=== PATIENT | female | born 1950 | race Caucasian/White ===

== ENCOUNTER 2023-11-30 10:40 | Inpatient (IN) | payer MEDICARE, OTHER ==
[~2023-11-30] VITALS: Ht 162.6 cm; Wt 73.0 kg
[2023-11-30 12:06] LABS: BASOPHILS % (AUTO) 0.9 % (0.0-2.0); EOSINOPHILS # (AUTO) 0.1 K/uL (0.0-0.7); EOSINOPHILS % (AUTO) 1.7 % (0.0-6.0); HEMATOCRIT 38 % (33-45); HEMOGLOBIN 12.7 g/dL (11.5-14.8); LYMPHOCYTES # (AUTO) 0.8 K/uL (0.8-4.8); LYMPHOCYTES % (AUTO) 24.1 % (20.0-44.0); MEAN CORPUSCULAR HEMOGLOBIN 31 PG (26.0-33.0); MEAN CORPUSCULAR HGB CONC 34 g/dl (31.0-36.0); MEAN CORPUSCULAR VOLUME 93 fL (82-100); MONOCYTES # (AUTO) 0.2 K/uL (0.1-1.30); MONOCYTES % (AUTO) 5.5 % (2.0-12.0); NEUTROPHILS # (AUTO) 2.4 K/uL (1.8-8.9); NEUTROPHILS % (AUTO) 67.8 % (43.0-81.0); PLATELET COUNT (AUTO) 171 K/uL (150-450); RED BLOOD CELL COUNT(AUTO) 4.06 MIL/uL (4.0-5.2); RED CELL DISTRIBUTION WIDTH 13.2 % (11.5-15.0); WHITE BLOOD COUNT (AUTO) 3.5 K/uL (4.3-11.0)
[2023-11-30 12:18] LABS: CALCIUM, SERUM 9.5 mg/dL (8.5-10.1); CARBON DIOXIDE 29 mmol/L (21-32); CHLORIDE 106 mmol/L (98-107); CREATININE 0.8 mg/dL (0.6-1.3); GLUCOSE 108 mg/dL (74-106); POTASSIUM 3.5 mmol/L (3.5-5.1); SODIUM SERUM 139 mmol/L (136-145); UREA NITROGEN, BLOOD 7 mg/dL (7-18)
[2023-11-30 12:22] LABS: ALANINE AMINOTRANSFERASE 30 U/L (12-78); ALBUMIN 3.5 g/dL (3.4-5.0); ALCOHOL, BLOOD < 3 mg/dL (0-10); ALKALINE PHOSPHATASE 66 U/L (46-116); ASPARTATE AMINOTRANSFERASE 24 U/L (15-37); BILIRUBIN,DIRECT 0.2 mg/dL (0.0-0.2); BILIRUBIN,TOTAL 0.6 mg/dL (0.2-1.0); TOTAL PROTEIN, SERUM 6.2 g/dL (6.4-8.2)
[2023-11-30 12:23] LABS: ACETAMINOPHEN <10 ug/ml (10-30); SALICYLATE < 0.2 mg/dL (2.8-20.0)
[2023-11-30] MEDS ORDERED: QUET25TA PO (12:37)
[2023-11-30] MEDS ORDERED: LEVO50TA8 PO (12:37)
[2023-11-30] MEDS ORDERED: ESCI10TA PO (12:37)
[2023-11-30] MEDS ORDERED: TRAZ-182 PO (12:37)
[2023-11-30] MEDS ORDERED: ATOR20TA PO (12:37)
[2023-11-30] MEDS ORDERED: ASPI-1420 PO (12:37)
[2023-11-30] MEDS ORDERED: DONE10TA11 PO (12:37)
[2023-11-30] MEDS ORDERED: CLON0.5T4 PO ×2 (12:37)
[2023-11-30 14:56] LABS: APPEARANCE,URINE Clear (CLEAR); BILIRUBIN,URINE SMALL (NEGATIVE); BLOOD, URINE Negative Ery/uL (NEGATIVE); COLOR,URINE YELLOW (YELLOW); KETONES,URINE Trace mg/dL (NEGATIVE); LEUKOCYTE ESTERASE ,URINE Negative (NEGATIVE); NITRITE, URINE Negative (NEGATIVE); PH,URINE 5.5 (5.0-8.0); PROTEIN,URINE 30 mg/dl (NEGATIVE); UGLUCOSE Negative (NEGATIVE)
[2023-11-30 15:04] LABS: AMPHETAMINE, URINE NEGATIVE (NEGATIVE); BARBITURATE, URINE NEGATIVE (NEGATIVE); CANNABINOID, URINE NEGATIVE (NEGATIVE); COCCAINE, URINE NEGATIVE (NEGATIVE); OPIATE, URINE NEGATIVE (NEGATIVE); PHENCYCLIDINE SCREEN,URINE NEGATIVE (NEGATIVE)
[2023-11-30 15:10] LABS: BENZODIAZEPINE, URINE POSITIVE (NEGATIVE)
[2023-11-30 15:33] LABS: ADD URINE CULTURE NO; BACTERIA,URINE None seen /HPF (None Seen); CALCIUM OXALATE CRYSTALS,UR Many /HPF (None Seen); MUCUS,URINE Moderate /LPF (None Seen); RBC,URINE NONE SEEN /HPF (0-2); SQUAMOUS EPITHELIAL CELL,UR None Seen /HPF (None Seen); WBC,URINE NONE SEEN /HPF (0-3)
[2023-11-30] MEDS: ASPIRIN EC 81 MG TABLET.DR PO SCH (16:53)
[2023-11-30] MEDS: LEVOTHYROXINE SODIUM 50 MCG TABLET PO SCH (16:53)
[2023-11-30 20:14] VITALS: BP 109/76; TEMP 98.4; O2SAT 96
[2023-11-30] MEDS: ATORVASTATIN 10 MG TABLET PO SCH (21:07)
[2023-11-30] MEDS: DONEPEZIL 5 MG TABLET PO SCH (21:07)
[2023-11-30] MEDS: TEMAZEPAM 7.5 MG CAPSULE PO SCH (21:08)
[2023-12-01] MEDS: LORAZEPAM 0.5 MG TABLET PO PRN (01:17)
[2023-12-01 07:13] LABS: CREATININE 0.8 mg/dL (0.6-1.3); POTASSIUM 3.6 mmol/L (3.5-5.1)
[2023-12-01 08:00] VITALS: BP 114/66; TEMP 98.7; O2SAT 98
[2023-12-01] MEDS: QUETIAPINE FUMARATE 25 MG TABLET PO SCH ×2 (13:29→21:16)
[2023-12-01 16:00] VITALS: BP 115/72; TEMP 98.3; O2SAT 97
[2023-12-02 08:00] VITALS: BP 111/69; TEMP 98.4; O2SAT 98
[2023-12-02 16:00] VITALS: BP 127/90; TEMP 98.6; O2SAT 99
[2023-12-02] MEDS: DIVALPROEX SODIUM 125 MG CAP.SPRINK PO SCH (17:10)
[2023-12-02] MEDS: QUETIAPINE FUMARATE 25 MG TABLET PO SCH ×2 (17:26→21:48)
[2023-12-02 20:00] VITALS: BP 134/72; TEMP 98.3; O2SAT 99
[2023-12-03 16:00] VITALS: BP 127/87; TEMP 97.8; O2SAT 97
[2023-12-03] MEDS: DIVALPROEX SODIUM 250 MG TABLET.DR PO SCH (16:16)
[2023-12-03 20:00] VITALS: BP 144/80; TEMP 97.8; O2SAT 97
[2023-12-04 08:43] VITALS: BP 131/85; TEMP 98.7; O2SAT 94
[2023-12-04 16:24] VITALS: BP 116/88; TEMP 97.5; O2SAT 94
[2023-12-04 20:00] VITALS: BP_SYST 109; BP_SYST 118; BP_DIAS 76; BP_DIAS 94; TEMP 98; TEMP 98.1; O2SAT 97; O2SAT 98
[2023-12-05 06:55] LABS: BASOPHILS % (AUTO) 0.8 % (0.0-2.0); EOSINOPHILS # (AUTO) 0.1 K/uL (0.0-0.7); EOSINOPHILS % (AUTO) 3.8 % (0.0-6.0); HEMATOCRIT 40 % (33-45); HEMOGLOBIN 13.7 g/dL (11.5-14.8); LYMPHOCYTES # (AUTO) 0.7 K/uL (0.8-4.8); LYMPHOCYTES % (AUTO) 24.7 % (20.0-44.0); MEAN CORPUSCULAR HEMOGLOBIN 32 PG (26.0-33.0); MEAN CORPUSCULAR HGB CONC 34 g/dl (31.0-36.0); MEAN CORPUSCULAR VOLUME 94 fL (82-100); MONOCYTES # (AUTO) 0.4 K/uL (0.1-1.30); MONOCYTES % (AUTO) 13.5 % (2.0-12.0); NEUTROPHILS # (AUTO) 1.6 K/uL (1.8-8.9); NEUTROPHILS % (AUTO) 57.2 % (43.0-81.0); PLATELET COUNT (AUTO) 177 K/uL (150-450); RED BLOOD CELL COUNT(AUTO) 4.24 MIL/uL (4.0-5.2); RED CELL DISTRIBUTION WIDTH 13.4 % (11.5-15.0); WHITE BLOOD COUNT (AUTO) 2.8 K/uL (4.3-11.0)
[2023-12-05 07:28] LABS: ALBUMIN 3.3 g/dL (3.4-5.0); BILIRUBIN,TOTAL 0.8 mg/dL (0.2-1.0); CALCIUM, SERUM 9.7 mg/dL (8.5-10.1); CREATININE 0.8 mg/dL (0.6-1.3); POTASSIUM 3.2 mmol/L (3.5-5.1); TOTAL PROTEIN, SERUM 6.6 g/dL (6.4-8.2)
[2023-12-05] MEDS: POTASSIUM CHLORIDE 20 MEQ TAB.PRT.SR PO SCH (10:55)
[2023-12-05 16:00] VITALS: BP 112/71; TEMP 98.2; O2SAT 96
[2023-12-05 21:19] VITALS: TEMP 98.2; O2SAT 96
[2023-12-06] MEDS: OLANZAPINE 10 MG VIAL IM ONE ×2 (06:51→06:52)
[2023-12-06 08:00] VITALS: BP 122/71; TEMP 97.9; O2SAT 98
[2023-12-06] MEDS ORDERED: Z GUARD REMEDY 4 OZ OINT TP PRN (08:30)
[2023-12-06] MEDS: CLOTRIMAZOLE 1% 15 GM TUBE TP SCH (09:16)
[2023-12-06] MEDS: Z GUARD REMEDY 4 OZ OINT TP SCH (09:16)
[2023-12-06] MEDS: DIVALPROEX SODIUM 125 MG TABLET.DR PO SCH (12:52)
[2023-12-06 15:26] LABS: CALCIUM, SERUM 9.3 mg/dL (8.5-10.1); CREATININE 0.8 mg/dL (0.6-1.3); POTASSIUM 3.6 mmol/L (3.5-5.1)
[2023-12-06 16:00] VITALS: BP 101/79; TEMP 98.7; O2SAT 98
[2023-12-06 20:00] VITALS: BP 128/81; TEMP 98.7; O2SAT 95
[2023-12-06 20:23] VITALS: BP 128/81; TEMP 98.7; O2SAT 95
[2023-12-06] MEDS: QUETIAPINE FUMARATE 25 MG TABLET PO SCH (21:53)
[2023-12-07 08:00] VITALS: BP 121/67; TEMP 97.6; O2SAT 97
[2023-12-07] MEDS: ENSURE ENLIVE 237 ML LIQUID (VANILLA) PO SCH (09:35)
[2023-12-07 16:00] VITALS: BP 108/65; TEMP 98; O2SAT 93
[2023-12-07 20:53] VITALS: BP 107/80; TEMP 98.1; O2SAT 98
[2023-12-08 08:00] VITALS: BP 115/60; TEMP 97.8; O2SAT 99
[2023-12-08] MEDS: QUETIAPINE FUMARATE 25 MG TABLET PO SCH (12:14)
[2023-12-08 16:00] VITALS: BP 101/67; TEMP 98.1; O2SAT 98
[2023-12-08 20:41] VITALS: BP 129/60; TEMP 98.2; O2SAT 95
[2023-12-09 08:00] VITALS: BP 98/75; TEMP 98.6; O2SAT 94
[2023-12-09 16:00] VITALS: BP 110/76; TEMP 98; O2SAT 98
[2023-12-09] MEDS: risperiDONE 1 MG TABLET PO SCH (16:53)
[2023-12-09 20:00] VITALS: BP 123/76; TEMP 98.4; O2SAT 97
[2023-12-09] MEDS: risperiDONE 0.25 MG TABLET PO SCH (22:39)
[2023-12-10 07:09] LABS: BASOPHILS % (AUTO) 0.7 % (0.0-2.0); EOSINOPHILS # (AUTO) 0.1 K/uL (0.0-0.7); HEMATOCRIT 40 % (33-45); HEMOGLOBIN 13.4 g/dL (11.5-14.8); LYMPHOCYTES # (AUTO) 0.9 K/uL (0.8-4.8); LYMPHOCYTES % (AUTO) 31.8 % (20.0-44.0); MEAN CORPUSCULAR HEMOGLOBIN 32 PG (26.0-33.0); MEAN CORPUSCULAR HGB CONC 34 g/dl (31.0-36.0); MEAN CORPUSCULAR VOLUME 95 fL (82-100); MONOCYTES # (AUTO) 0.3 K/uL (0.1-1.30); MONOCYTES % (AUTO) 10.1 % (2.0-12.0); NEUTROPHILS # (AUTO) 1.5 K/uL (1.8-8.9); NEUTROPHILS % (AUTO) 52.4 % (43.0-81.0); PLATELET COUNT (AUTO) 133 K/uL (150-450); RED BLOOD CELL COUNT(AUTO) 4.17 MIL/uL (4.0-5.2); RED CELL DISTRIBUTION WIDTH 13.4 % (11.5-15.0); WHITE BLOOD COUNT (AUTO) 2.9 K/uL (4.3-11.0)
[2023-12-10 07:11] LABS: ALBUMIN 2.5 g/dL (3.4-5.0); BILIRUBIN,TOTAL 0.7 mg/dL (0.2-1.0); CREATININE 0.6 mg/dL (0.6-1.3); POTASSIUM 3.7 mmol/L (3.5-5.1); TOTAL PROTEIN, SERUM 5.8 g/dL (6.4-8.2)
[2023-12-10 08:00] VITALS: BP 119/63; TEMP 98.6; O2SAT 98
[2023-12-10 16:00] VITALS: BP 148/90; TEMP 98.6; O2SAT 96
[2023-12-10 20:00] VITALS: BP 120/58; TEMP 98; O2SAT 96
[2023-12-11 08:00] VITALS: BP 122/54; TEMP 97.9; O2SAT 95
[2023-12-11 16:00] VITALS: BP 104/57; TEMP 98; O2SAT 94
[2023-12-11] MEDS: DIVALPROEX SODIUM 250 MG TABLET.DR PO SCH ×2 (17:05→21:33)
[2023-12-11 20:00] VITALS: BP 129/63; TEMP 98.2; O2SAT 98
[2023-12-12 08:00] VITALS: BP 121/67; TEMP 97.5; O2SAT 97
[2023-12-12 16:00] VITALS: BP 104/85; TEMP 97.6; O2SAT 96
[2023-12-12 20:21] VITALS: BP 121/94; TEMP 98.1; O2SAT 96
[2023-12-13 08:00] VITALS: BP 126/74; TEMP 98.1; O2SAT 98
[2023-12-13 08:18] LABS: BASOPHILS % (AUTO) 0.8 % (0.0-2.0); EOSINOPHILS # (AUTO) 0.1 K/uL (0.0-0.7); EOSINOPHILS % (AUTO) 2.9 % (0.0-6.0); HEMATOCRIT 38 % (33-45); HEMOGLOBIN 12.7 g/dL (11.5-14.8); LYMPHOCYTES # (AUTO) 0.7 K/uL (0.8-4.8); LYMPHOCYTES % (AUTO) 29.2 % (20.0-44.0); MEAN CORPUSCULAR HEMOGLOBIN 32 PG (26.0-33.0); MEAN CORPUSCULAR HGB CONC 34 g/dl (31.0-36.0); MEAN CORPUSCULAR VOLUME 94 fL (82-100); MONOCYTES # (AUTO) 0.3 K/uL (0.1-1.30); MONOCYTES % (AUTO) 10.5 % (2.0-12.0); NEUTROPHILS # (AUTO) 1.4 K/uL (1.8-8.9); NEUTROPHILS % (AUTO) 56.6 % (43.0-81.0); PLATELET COUNT (AUTO) 123 K/uL (150-450); RED BLOOD CELL COUNT(AUTO) 3.98 MIL/uL (4.0-5.2); RED CELL DISTRIBUTION WIDTH 13.6 % (11.5-15.0); WHITE BLOOD COUNT (AUTO) 2.4 K/uL (4.3-11.0)
[2023-12-13 16:00] VITALS: BP 134/69; TEMP 97.9; O2SAT 98
[2023-12-13 20:58] VITALS: BP 134/96; TEMP 98.1; O2SAT 97
[2023-12-14 08:00] VITALS: BP 122/69; TEMP 97.9; O2SAT 96
[2023-12-14] MEDS: OXCARBAZEPINE 150 MG TABLET PO SCH (08:26)
[2023-12-14 16:00] VITALS: BP 135/92; TEMP 98; O2SAT 98
[2023-12-14 20:30] VITALS: BP 124/87; TEMP 98.2; O2SAT 98
[2023-12-15 08:00] VITALS: BP 118/67; TEMP 97.9; O2SAT 97
[2023-12-15] MEDS: OXCARBAZEPINE 150 MG TABLET PO SCH ×3 (12:00→16:07)
[2023-12-15 16:00] VITALS: BP 120/64; TEMP 97.9; O2SAT 95
[2023-12-15 20:00] VITALS: BP 129/82; TEMP 98.2; O2SAT 99
[2023-12-16 08:00] VITALS: BP 119/76; TEMP 97.6; O2SAT 94
[2023-12-16] MEDS: OXCARBAZEPINE 150 MG TABLET PO SCH ×2 (08:28→13:38)
[2023-12-16 16:00] VITALS: BP 133/90; TEMP 97.5; O2SAT 94
[2023-12-16 20:00] VITALS: BP 128/71; TEMP 98.3; O2SAT 99
[2023-12-17 08:00] VITALS: BP_SYST 105; BP_SYST 123; BP_DIAS 52; BP_DIAS 75; TEMP 97.6; TEMP 97.9; O2SAT 96; O2SAT 98
== END 2023-12-17 12:50 | DRG 885 ==
LOC: ER 10:40 → GPS 16:09
PROVIDERS: ADMIT Psychiatry & Neurology Psychosomatic Medicine; ATTEND Internal Medicine
DX: F29 Unspecified psychosis not due to a substance or known physiological condition (principal); E44.1 Mild protein-calorie malnutrition; F02.82 Dementia in other diseases classified elsewhere, unspecified severity, with psychotic disturbance; I10 Essential (primary) hypertension; E03.9 Hypothyroidism, unspecified; E78.5 Hyperlipidemia, unspecified; E88.09 Other disorders of plasma-protein metabolism, not elsewhere classified; Z86.73 Personal history of transient ischemic attack (TIA), and cerebral infarction without residual deficits; Z20.822 Contact with and (suspected) exposure to COVID-19; Z73.6 Limitation of activities due to disability; G31.83 Neurocognitive disorder with Lewy bodies; Z68.27 Body mass index [BMI] 27.0-27.9, adult; F31.9 Bipolar disorder, unspecified; Z66 Do not resuscitate
CPT/HCPCS: 36415; 73140-TC; 80048-TC; 80053-TC; 80076-TC; 80164-TC; 81001; 85025-TC; G0480; J3490

== ENCOUNTER 2024-04-14 19:31 | Inpatient (IN) | payer MEDICARE, OTHER ==
[~2024-04-14] VITALS: Ht 160 cm; Wt 72.6 kg
[~2024-04-14 19:31] MED LIST: ASPI-1420 PO; ATOR20TA PO; CLON0.5T4 PO; DONE10TA11 PO; ESCI10TA PO; LEVO50TA8 PO; QUET25TA PO; TRAZ-182 PO
[2024-04-14 22:30] LABS: BASOPHILS % (AUTO) 0.6 % (0.0-2.0); EOSINOPHILS # (AUTO) 0.2 K/uL (0.0-0.7); EOSINOPHILS % (AUTO) 4.7 % (0.0-6.0); HEMATOCRIT 37 % (33-45); HEMOGLOBIN 12.3 g/dL (11.5-14.8); LYMPHOCYTES # (AUTO) 0.7 K/uL (0.8-4.8); LYMPHOCYTES % (AUTO) 22.3 % (20.0-44.0); MEAN CORPUSCULAR HEMOGLOBIN 32 PG (26.0-33.0); MEAN CORPUSCULAR HGB CONC 33 g/dl (31.0-36.0); MEAN CORPUSCULAR VOLUME 95 fL (82-100); MONOCYTES # (AUTO) 0.3 K/uL (0.1-1.30); MONOCYTES % (AUTO) 10.3 % (2.0-12.0); NEUTROPHILS % (AUTO) 62.1 % (43.0-81.0); PLATELET COUNT (AUTO) 158 K/uL (150-450); RED BLOOD CELL COUNT(AUTO) 3.91 MIL/uL (4.0-5.2); RED CELL DISTRIBUTION WIDTH 14.2 % (11.5-15.0); WHITE BLOOD COUNT (AUTO) 3.2 K/uL (4.3-11.0)
[2024-04-14 22:42] LABS: ACETAMINOPHEN < 10 ug/ml (10-30); ALANINE AMINOTRANSFERASE 25 U/L (12-78); ALBUMIN 3.2 g/dL (3.4-5.0); ALCOHOL, BLOOD < 3 mg/dL (0-10); ALKALINE PHOSPHATASE 56 U/L (46-116); ASPARTATE AMINOTRANSFERASE 19 U/L (15-37); BILIRUBIN,DIRECT 0.1 mg/dL (0.0-0.2); BILIRUBIN,TOTAL 0.4 mg/dL (0.2-1.0); CALCIUM, SERUM 8.9 mg/dL (8.5-10.1); CARBON DIOXIDE 33 mmol/L (21-32); CHLORIDE 105 mmol/L (98-107); CREATININE 0.7 mg/dL (0.6-1.3); GLUCOSE 92 mg/dL (74-106); POTASSIUM 3.9 mmol/L (3.5-5.1); SODIUM SERUM 144 mmol/L (136-145); TOTAL PROTEIN, SERUM 6.2 g/dL (6.4-8.2); UREA NITROGEN, BLOOD 19 mg/dL (7-18)
[2024-04-14 22:52] LABS: SALICYLATE 0.8 mg/dL (2.8-20.0)
[2024-04-14 23:13] LABS: APPEARANCE,URINE CLEAR (CLEAR); BILIRUBIN,URINE NEGATIVE (NEGATIVE); BLOOD, URINE NEGATIVE Ery/uL (NEGATIVE); COLOR,URINE YELLOW (YELLOW); KETONES,URINE NEGATIVE (NEGATIVE); LEUKOCYTE ESTERASE ,URINE NEGATIVE (NEGATIVE); NITRITE, URINE NEGATIVE (NEGATIVE); PROTEIN,URINE NEGATIVE (NEGATIVE); UGLUCOSE NEGATIVE (NEGATIVE); UROBILINOGEN,URINE 0.2 EU/dL (0.2)
[2024-04-14 23:33] LABS: AMPHETAMINE, URINE NEGATIVE (NEGATIVE); BARBITURATE, URINE NEGATIVE (NEGATIVE); CANNABINOID, URINE NEGATIVE (NEGATIVE); COCCAINE, URINE NEGATIVE (NEGATIVE); OPIATE, URINE NEGATIVE (NEGATIVE); PHENCYCLIDINE SCREEN,URINE NEGATIVE (NEGATIVE)
[2024-04-14 23:35] LABS: BENZODIAZEPINE, URINE POSITIVE (NEGATIVE)
[2024-04-15] MEDS ORDERED: MEMA10TA PO (00:26)
[2024-04-15] MEDS ORDERED: GABA300C PO (00:26)
[2024-04-15] MEDS ORDERED: SENN8.6T19 PO (00:26)
[2024-04-15] MEDS ORDERED: AA8/1CAP3 PO (00:26)
[2024-04-15] MEDS ORDERED: MAGN400O21 PO (00:26)
[2024-04-15] MEDS ORDERED: HYDR-3976 GT (00:26)
[2024-04-15] MEDS ORDERED: BISA10SU61 RC (00:26)
[2024-04-15] MEDS ORDERED: NA P133E RC (00:26)
[2024-04-15] MEDS ORDERED: BENZ0.5T43 PO (00:26)
[2024-04-15] MEDS ORDERED: OLAN10TA3 PO (00:26)
[2024-04-15] MEDS ORDERED: ACET325C7 PO (00:26)
[2024-04-15] MEDS ORDERED: NUTR1PAC14 PO (00:26)
[2024-04-15] MEDS ORDERED: GABA-536 PO (00:26)
[2024-04-15] MEDS ORDERED: ZOLP5TAB2 PO (00:26)
[2024-04-15 01:53] VITALS: BP 126/56; TEMP 98; O2SAT 97
[2024-04-15] MEDS ORDERED: MAG HYDROX/AL HYDROX/SIMETH 30 ML UDC PO PRN (02:00)
[2024-04-15] MEDS ORDERED: ZOLPIDEM TARTRATE 5 MG TABLET PO PRN (02:00)
[2024-04-15] MEDS: BLOOD SUGAR DIAGNOSTIC 1 EACH STRIP IN ONE (02:00)
[2024-04-15] MEDS ORDERED: MAGNESIUM HYDROXIDE 30 ML UDC PO PRN (02:00)
[2024-04-15] MEDS ORDERED: CHOL500062 PO (02:08)
[2024-04-15] MEDS ORDERED: HYDR-3972 PO (02:14)
[2024-04-15] MEDS ORDERED: ASCO500C18 PO (02:18)
[2024-04-15 02:57] VITALS: BP 128/69; TEMP 98; O2SAT 98
[2024-04-15 07:15] LABS: THYROID STIMULATING HORMONE 5.72 uIU/mL (0.358-3.74)
[2024-04-15 08:00] VITALS: BP 106/61; TEMP 97.8; O2SAT 98
[2024-04-15] MEDS ORDERED: ACET-868 PO (08:11)
[2024-04-15] MEDS ORDERED: GABAPENTIN 400 MG CAPSULE PO SCH (09:00)
[2024-04-15] MEDS ORDERED: GABAPENTIN 300 MG CAPSULE PO SCH (09:00)
[2024-04-15] MEDS: ASPIRIN EC 81 MG TABLET.DR PO SCH (09:00)
[2024-04-15] MEDS: SENNOSIDES 8.6 MG TABLET PO SCH (09:00)
[2024-04-15] MEDS: LEVOTHYROXINE SODIUM 50 MCG TABLET PO SCH (09:00)
[2024-04-15] MEDS: ACETAMINOPHEN 325 MG TABLET PO PRN (12:40)
[2024-04-15] MEDS: ZIPRASIDONE MESYLATE 20 MG/VIAL VIAL IM ONE (14:48)
[2024-04-15 16:00] VITALS: BP 112/80; TEMP 98.4; O2SAT 96
[2024-04-15] MEDS: ZIPRASIDONE 20 MG CAPSULE PO SCH (19:24)
[2024-04-15 20:00] VITALS: BP 110/57; TEMP 97.9; O2SAT 97
[2024-04-15] MEDS: DIVALPROEX SODIUM 250 MG TABLET.DR PO SCH (20:57)
[2024-04-15] MEDS: ATORVASTATIN 10 MG TABLET PO SCH (21:20)
[2024-04-15] MEDS ORDERED: DONEPEZIL 5 MG TABLET PO SCH (22:00)
[2024-04-16 08:00] VITALS: BP 178/88; TEMP 97.7; O2SAT 97
[2024-04-16] MEDS: ZIPRASIDONE 20 MG CAPSULE PO SCH (16:04)
[2024-04-16 16:12] VITALS: BP 159/68; TEMP 98.7; O2SAT 97
[2024-04-16 20:00] VITALS: BP 119/54; TEMP 98.7; O2SAT 98
[2024-04-17 08:00] VITALS: BP 122/74; TEMP 98.6; O2SAT 100
[2024-04-17] MEDS: clonazePAM 0.5 MG TABLET PO PRN (13:40)
[2024-04-17 16:02] VITALS: BP 118/57; TEMP 97.9; O2SAT 98
[2024-04-17] MEDS: LORAZEPAM 0.5 MG TABLET PO PRN (18:25)
[2024-04-17] MEDS: ZOLPIDEM TARTRATE 5 MG TABLET PO PRN (20:31)
[2024-04-17 21:10] VITALS: BP 140/73; TEMP 97.8; O2SAT 96
[2024-04-18 08:00] VITALS: BP 109/53; TEMP 98.6; O2SAT 97
[2024-04-18 16:00] VITALS: BP 119/74; TEMP 98.7; O2SAT 98
[2024-04-18 22:09] VITALS: BP 132/60; TEMP 97.7; O2SAT 98
[2024-04-19 08:00] VITALS: BP 126/70; TEMP 97.9; O2SAT 95
[2024-04-19 16:00] VITALS: BP 129/65; TEMP 98.4; O2SAT 95
[2024-04-19 20:00] VITALS: BP 103/81; TEMP 98.1; O2SAT 97
[2024-04-19] MEDS: DIVALPROEX SODIUM 125 MG TABLET.DR PO SCH (21:29)
[2024-04-20 08:00] VITALS: BP 140/95; TEMP 98; O2SAT 96
[2024-04-20] MEDS: ZIPRASIDONE 20 MG CAPSULE PO SCH (08:27)
[2024-04-20] MEDS: DIVALPROEX SODIUM 125 MG CAP.SPRINK PO SCH (13:58)
[2024-04-20 16:00] VITALS: BP 121/69; TEMP 97.6; O2SAT 96
[2024-04-20 20:00] VITALS: BP 137/70; TEMP 97.7; O2SAT 96
[2024-04-21 08:00] VITALS: BP 141/100; TEMP 97.6; O2SAT 98
[2024-04-21 16:00] VITALS: BP 144/113; TEMP 98.6; O2SAT 96
[2024-04-21 20:00] VITALS: BP 132/58; TEMP 97.9; O2SAT 97
[2024-04-22 08:00] VITALS: BP 127/65; TEMP 97.8; O2SAT 100
[2024-04-22 16:00] VITALS: BP 130/78; TEMP 98.6; O2SAT 96
[2024-04-22 20:00] VITALS: BP 96/81; TEMP 97.8; O2SAT 99
[2024-04-22 21:00] VITALS: BP 103/62; TEMP 98; O2SAT 98
[2024-04-23] MEDS: ACIDOPHILUS/BULGARICUS 1 EACH TAB.CHEW PO SCH ×2 (02:58→08:56)
[2024-04-23 07:00] LABS: BASOPHILS % (AUTO) 0.9 % (0.0-2.0); EOSINOPHILS # (AUTO) 0.1 K/uL (0.0-0.7); EOSINOPHILS % (AUTO) 2.5 % (0.0-6.0); HEMATOCRIT 41 % (33-45); HEMOGLOBIN 13.7 g/dL (11.5-14.8); LYMPHOCYTES # (AUTO) 0.9 K/uL (0.8-4.8); LYMPHOCYTES % (AUTO) 19.5 % (20.0-44.0); MEAN CORPUSCULAR HEMOGLOBIN 32 PG (26.0-33.0); MEAN CORPUSCULAR HGB CONC 33 g/dl (31.0-36.0); MEAN CORPUSCULAR VOLUME 95 fL (82-100); MONOCYTES # (AUTO) 0.5 K/uL (0.1-1.30); MONOCYTES % (AUTO) 11.8 % (2.0-12.0); NEUTROPHILS # (AUTO) 2.9 K/uL (1.8-8.9); NEUTROPHILS % (AUTO) 65.3 % (43.0-81.0); PLATELET COUNT (AUTO) 165 K/uL (150-450); RED BLOOD CELL COUNT(AUTO) 4.36 MIL/uL (4.0-5.2); RED CELL DISTRIBUTION WIDTH 15.1 % (11.5-15.0); WHITE BLOOD COUNT (AUTO) 4.4 K/uL (4.3-11.0)
[2024-04-23 07:19] LABS: ALANINE AMINOTRANSFERASE 20 U/L (12-78); ALBUMIN 3.4 g/dL (3.4-5.0); ALKALINE PHOSPHATASE 56 U/L (46-116); ASPARTATE AMINOTRANSFERASE 11 U/L (15-37); BILIRUBIN,TOTAL 0.3 mg/dL (0.2-1.0); CALCIUM, SERUM 9.2 mg/dL (8.5-10.1); CHLORIDE 103 mmol/L (98-107); CREATININE 0.8 mg/dL (0.6-1.3); GLUCOSE 116 mg/dL (74-106); MAGNESIUM 1.9 mg/dL (1.8-2.4); PHOSPHORUS 3.9 mg/dL (2.5-4.9); POTASSIUM 3.9 mmol/L (3.5-5.1); SODIUM SERUM 142 mmol/L (136-145); TOTAL PROTEIN, SERUM 7.1 g/dL (6.4-8.2); UREA NITROGEN, BLOOD 24 mg/dL (7-18)
[2024-04-23 07:37] LABS: CARBON DIOXIDE 30 mmol/L (21-32)
[2024-04-23 07:41] LABS: VALPROIC ACID 108 ug/mL (50-100)
[2024-04-23 08:00] VITALS: BP 129/69; TEMP 97.7; O2SAT 99
[2024-04-23] MEDS: DIVALPROEX SODIUM 125 MG CAP.SPRINK PO SCH (14:51)
[2024-04-23 16:00] VITALS: BP 128/78; TEMP 97.9; O2SAT 98
[2024-04-23 21:01] VITALS: BP 130/69; TEMP 97.9; O2SAT 97
[2024-04-23] MEDS: DIVALPROEX SODIUM 250 MG TABLET.DR PO SCH (21:21)
[2024-04-24 08:00] VITALS: BP 126/57; TEMP 97.9; O2SAT 97
[2024-04-24 16:00] VITALS: BP 120/74; TEMP 97.8; O2SAT 98
[2024-04-24 20:58] VITALS: BP 96/62; TEMP 98; O2SAT 98
[2024-04-25 08:00] VITALS: BP 116/75; TEMP 97.8; O2SAT 97
[2024-04-25 16:00] VITALS: BP 140/70; TEMP 97.9; O2SAT 99
[2024-04-25 20:00] VITALS: TEMP 95; O2SAT 97
[2024-04-26 08:00] VITALS: BP 113/54; TEMP 97.9; O2SAT 99
[2024-04-26 16:00] VITALS: BP 130/76; TEMP 98.1; O2SAT 99
[2024-04-26 20:00] VITALS: BP 127/73; TEMP 98.4; O2SAT 97
[2024-04-27 08:00] VITALS: BP 131/76; TEMP 97.8; O2SAT 98
[2024-04-27] MEDS: ZIPRASIDONE 20 MG CAPSULE PO SCH (08:57)
[2024-04-27 16:00] VITALS: BP 99/71; TEMP 97.9; O2SAT 98
[2024-04-27 20:00] VITALS: BP 125/58; TEMP 97.8; O2SAT 99
[2024-04-28 08:00] VITALS: BP 150/72; TEMP 98.6; O2SAT 100
[2024-04-28 16:23] VITALS: BP 157/81; TEMP 98; O2SAT 99
[2024-04-28 20:23] VITALS: BP 124/79; TEMP 98.1; O2SAT 99
[2024-04-29 08:00] VITALS: BP 152/90; TEMP 97.7; O2SAT 98
[2024-04-29] MEDS: busPIRone 5 MG TABLET PO SCH (15:11)
[2024-04-29 16:00] VITALS: BP 155/84; TEMP 97.9; O2SAT 97
[2024-04-29 20:32] VITALS: BP 149/73; TEMP 97.9; O2SAT 98
[2024-04-30 08:00] VITALS: BP 110/61; TEMP 97.6; O2SAT 94
[2024-04-30 16:09] VITALS: BP 144/79; TEMP 98.1; O2SAT 98
[2024-04-30 20:57] VITALS: BP 107/55; TEMP 98.1; O2SAT 98
[2024-05-01 08:00] VITALS: BP 120/98; TEMP 97.8; O2SAT 98
[2024-05-01] MEDS: GABAPENTIN 100 MG CAPSULE PO SCH (12:56)
[2024-05-01 16:00] VITALS: BP 116/52; TEMP 98.1; O2SAT 99
[2024-05-01 21:09] VITALS: BP 105/55; TEMP 98.2; O2SAT 99
[2024-05-02 08:00] VITALS: BP 107/61; TEMP 97.6; O2SAT 97
[2024-05-02 08:45] VITALS: BP 107/41; TEMP 97.4; O2SAT 97
[2024-05-02 16:00] VITALS: BP 97/61; TEMP 97.8; O2SAT 95
[2024-05-02 20:00] VITALS: BP 103/53; TEMP 98.1; O2SAT 95
[2024-05-03 08:00] VITALS: BP 105/63; TEMP 98.1; O2SAT 98
== END 2024-05-03 12:30 | DRG 885 ==
LOC: ER 19:51 → GPS 04-15 01:17
PROVIDERS: ADMIT Psychiatry & Neurology Psychiatry; ATTEND Student in an Organized Health Care Education/Training Program
DX: F25.9 Schizoaffective disorder, unspecified (principal); G92.8 Other toxic encephalopathy; F02.83 Dementia in other diseases classified elsewhere, unspecified severity, with mood disturbance; F02.818 Dementia in other diseases classified elsewhere, unspecified severity, with other behavioral disturbance; F03.93 Unspecified dementia, unspecified severity, with mood disturbance; F03.92 Unspecified dementia, unspecified severity, with psychotic disturbance; E46 Unspecified protein-calorie malnutrition; F03.911 Unspecified dementia, unspecified severity, with agitation; F29 Unspecified psychosis not due to a substance or known physiological condition; G31.83 Neurocognitive disorder with Lewy bodies; E78.5 Hyperlipidemia, unspecified; G62.9 Polyneuropathy, unspecified; Z66 Do not resuscitate; E03.9 Hypothyroidism, unspecified; Z86.73 Personal history of transient ischemic attack (TIA), and cerebral infarction without residual deficits; Z73.6 Limitation of activities due to disability; Z79.890 Hormone replacement therapy; Z79.82 Long term (current) use of aspirin; Z79.899 Other long term (current) drug therapy; E66.3 Overweight; G93.89 Other specified disorders of brain; R79.89 Other specified abnormal findings of blood chemistry; Z68.28 Body mass index [BMI] 28.0-28.9, adult
CPT/HCPCS: 36415; 70450-TC; 80048-TC; 80053-TC; 80061-TC; 80076-TC; 80164-TC; 82607-TC; 83735-TC; 84100-TC; 84439-TC; 84443-TC; 85025-TC; 87081-TC; 97112-TC; 97116-TC; 97530-TC; G0480; J3486